=== PATIENT | male | born 1945 | race Caucasian/White ===

== ENCOUNTER 2018-04-07 22:18 | Emergency (ER) | payer OTHER, MEDICARE ==
[~2018-04-07] VITALS: Ht 177.8 cm; Wt 86.2 kg
[2018-04-08] MEDS ORDERED: Norco 5-325 Ta1 EACH PO (01:17)
[2018-04-08] MEDS ORDERED: CRUTCH2 XX (01:17)
== END 2018-04-08 05:30 ==
LOC: ER 22:18
DX: S82.861A Displaced Maisonneuve's fracture of right leg, initial encounter for closed fracture (principal); S82.891A Other fracture of right lower leg, initial encounter for closed fracture; I48.91 Unspecified atrial fibrillation; Z87.891 Personal history of nicotine dependence; X50.1XXA Overexertion from prolonged static or awkward postures, initial encounter
CPT/HCPCS: 27781; 29515; 73590; 96374; 99152; 99284-25; J3010; J7030